=== PATIENT | female | born 1950 | race Caucasian/White ===

== ENCOUNTER 2021-07-04 08:02 | Day surgery (SDC) | payer OTHER ==
[~2021-07-04 08:02] MED LIST: NITR100C6 PO; PHEN-786 PO
[2021-07-04 08:20] VITALS: BP 129/43
[2021-07-04] MEDS ORDERED: MIDAZolam 1 MG/ML 5ML VIAL ONE (08:28)
[2021-07-04] MEDS ORDERED: fentaNYL/PF 50MCG/1 ML 2ML syringe ONE (08:28)
[2021-07-04] MEDS ORDERED: NIAC-34 PO (08:30)
[2021-07-04] MEDS ORDERED: MECO10005 (08:30)
[2021-07-04] MEDS ORDERED: ERGO400C2 (08:31)
[2021-07-04] MEDS ORDERED: ASCO500C12 PO (08:32)
[2021-07-04 09:21] VITALS: BP 113/68
[2021-07-04 09:31] VITALS: BP 105/63
[2021-07-04 09:41] VITALS: BP 117/72
[2021-07-04 09:51] VITALS: BP 100/48
== END 2021-07-04 09:55 | disposition home or self-care (01) ==
LOC: GI LAB 08:02
PROVIDERS: ATTEND Internal Medicine Gastroenterology
DX: Z12.11 Encounter for screening for malignant neoplasm of colon (principal); K57.30 Diverticulosis of large intestine without perforation or abscess without bleeding
CPT/HCPCS: 99153; G0105; G0500; J2250; J3010; J7040; Z7512; 45378; 99152; A4620